=== PATIENT | female | born 1990 | race African-American/Black ===

== ENCOUNTER → 2017-06-04 | Outpatient (CLI) | payer MEDICAID, OTHER ==
[~2017-06-04] MED LIST: METR500T10 PO; MULTTAB20 PO; PNV11TAB PO; PRENTAB14 PO; PROM1SUP7 RECTAL; ZOFR4TAB3 SL
== END ==
LOC: HPND 08:15
PROVIDERS: ATTEND Family Medicine
DX: O36.80X0 Pregnancy with inconclusive fetal viability, not applicable or unspecified (principal); Z36 Encounter for antenatal screening of mother
CPT/HCPCS: 76801; 76817

== ENCOUNTER → 2017-08-13 | Outpatient (CLI) | payer MEDICAID ==
[~2017-08-13] MED LIST changes: -MULTTAB20 PO; -PRENTAB14 PO
== END ==
LOC: HPND 08:20
PROVIDERS: ATTEND Family Medicine
DX: Z36.9 Encounter for antenatal screening, unspecified (principal)
CPT/HCPCS: 76805

== ENCOUNTER → 2017-09-18 | Outpatient (CLI) | payer MEDICAID ==
[~2017-09-18] MED LIST changes: -METR500T10 PO
== END ==
LOC: HPND 08:24
PROVIDERS: ATTEND Family Medicine
DX: Z36.2 Encounter for other antenatal screening follow-up (principal)
CPT/HCPCS: 76816

== ENCOUNTER 2017-11-20 14:54 | Emergency (ER) | payer MEDICAID ==
[~2017-11-20 14:54] MED LIST changes: +BOOSINJ IM
--- NOTE | 2017-11-20 15:52 | PD ---
HPI Chief Complaint back pain Date Seen: Nov 20, 2017 Time Seen: 15:44 (Lupillo Mccullough MD) Travel History International Travel<30 Days: No Contact w/Intl Traveler<30Days: No (Lupillo Mccullough MD) History of Present Illness HPI 27 y/o at 33/0 weeks presents to ED for back pain. She is a pt of Dr. Mckeon and was told to come be evaluated if worsening back pain. She states the back pain has been going on the entire . States the back pain has worsened in the last few days. Pain is bilateral lower back. Worse with standing/sitting. Describes it as 7/10 when standing or walking. Denies any shooting pain down legs or numbness/tingling. Denies any vaginal bleeding, loss of fluids, contractions. Endorses movement. Denies any other complaints, including chest pain, SOB, abdominal pain, leg pain/swelling. Has been taking Tylenol frequently, which helps some. Weeks Gestation: 33 Para: 1 : 4 : 2 (Lupillo Mccullough MD) History Past Medical History Medical History: Denies Significant Hx (Lupillo Mccullough MD) Obstetric History Obstetric History 2011- at 37w 2012- 2014- (Lupillo Mccullough MD) Past Surgical History Narrative Surgical Appendectomy (Lupillo Mccullough MD) Family History Family History: Negative (Lupillo Mccullough MD) Social History Alcohol Use: No Tobacco Use: No Substance Abuse: No (Lupillo Mccullough MD) Allergies-Medications (Allergen,Severity, Reaction): Coded Allergies: No Known Allergies (Verified Adverse Reaction, Unknown, 10/26/17) Home Meds Active Scripts Diph-Tetanus Tox-Acell Pert Inj (Boostrix Inj) 5-2.5-18.5/0.5 Ml Inj, 0.5 ML IM .ONCE for Immunization, #1 SYRINGE 0 Refills Prov:Barry Mckeon MD R2 11/09/17 Aff971/FA/Omega3/Dha/Fish Oil ( Gummies) 400 Mcg-32.5 Mg (25 Mg-7.5 Mg) Tab.chew, 1 GUM PO DAILY, #90 BOTTLE 11 Refills Prov:Barry Mckeon MD R2 06/19/17 Promethazine Supp (Phenergan Supp) 25 Mg Supp, 25 MG RECTAL Q4H Y for NAUSEA OR VOMITING, #30 SUPP 0 Refills Prov:Barry Mckeon MD R2 06/17/17 Ondansetron Odt (Zofran Odt) 4 Mg Tab, 4 MG SL Q6HR Y for Nausea/Vomiting, #30 TAB 0 Refills Prov:Barry Mckeon MD R2 06/17/17 Review of Systems General / Constitutional: Weight Gain, No: Fever, Weight Loss, Chills, Other Eyes: No: Diploplia, Blurred Vision, Visual changes, Pain, Photophobia HENT: No: Headaches, Vertigo, Lightheadedness Cardiovascular: No: Irregular Rhythm, Chest Pain or Discomfort, Palpitations, Tachycardia, Syncope, Varicosities, Edema, Cyanosis Respiratory: No: Cough, Short of Breath, Other Gastrointestinal: No: Nausea, Vomiting, Diarrhea, Abdominal Pain, Constipation Genitourinary: No: Urgency, Frequency, Dysuria, Nocturia, Decreased Urinary Output, Oliguria, Incontinence, Pelvic Pain, Discharge, Menorrhagia, Vaginal Bleeding Musculoskeletal: No: Limited ROM, Weakness, Cramping, Edema, Pain Skin: No Rash, No Itching, No Dryness, No Lumps, No Change in Pigmentation, No Change in Nails, No Alopecia, No Lesions Neurologic: No: Weakness, Dizziness, Syncope, Focal Abnormalities, Coordination Problem, Headache, Slurred Speech, Seizures Psychiatric: No: Depression, Suicidal Ideations, Homicidal Ideation Endocrine: No: Heat Intolerance, Cold Intolerance, Polydipsia, Polyuria, Other (Lupillo Mccullough MD) Physical Exam Narrative GENERAL: Well-nourished, well-developed patient. SKIN: Warm and dry. HEAD: Normocephalic and atraumatic. EYES: No scleral icterus. No injection or drainage. ENT: No nasal drainage noted. Mucous membranes pink. Airway patent. NECK: Supple, trachea midline. No JVD. CARDIOVASCULAR: Regular rate and rhythm without murmurs, gallops, or rubs. RESPIRATORY: Breath sounds equal bilaterally. No accessory muscle use. ABDOMEN/GI: Abdomen soft, non-tender, bowel sounds present, no rebound, no guarding Gravid to 33 weeks size GENITOURINARY: deferred Uterine Contractions: none FHT's: Category: 1 Baseline: 150 Reactive: yes Variability: moderate Decels: none EXTREMITIES: No cyanosis or edema. BACK: Nontender without obvious deformity. No CVA tenderness. NEUROLOGICAL: Awake and alert. Motor and sensory grossly within normal limits. Five out of 5 muscle strength in all muscle groups. Normal speech. (Lupillo Mccullough MD) Data Data Vital Signs Reviewed: Yes (Lupillo Mccullough MD) [facility] Medical Record Reviewed: Yes Interpretation(s) 27 y/o at 33/0 weeks presents with back pain Category 1 FHT Urine dip shows mild dehydration, no sign of infection, trace protein A/P: Back pain affecting -Discharge home -F/u with Dr. Mckeon next Thursday -Recommended belly band to wear, especially while at work -Can use Tylenol, but not to exceed 3g daily -Return to ED if signs of vaginal bleeding, gush of fluids, severe/frequent contractions (Lupillo Mccullough MD) Attending Attestation Patient seen, examined, and discussed with Dr. Mccullough. I agree with assessment and management as documented and discussed with me. (Keri Sherman MD) Diagnosis Diagnosis: Primary Impression: Back pain affecting in third trimester Disposition: DISCHARGE HOME Condition: Stable Patient Instructions: General Instructions, Early Labor Signs (ED) Lupillo Mccullough MD Nov 20, 2017 15:52 Keri Sherman MD Nov 21, 2017 10:43
== END 2017-11-20 16:46 | disposition home or self-care (01) ==
LOC: HOBED 14:54
DX: O26.893 Other specified pregnancy related conditions, third trimester (principal); M54.5 Low back pain; Z3A.33 33 weeks gestation of pregnancy
CPT/HCPCS: 59025

== ENCOUNTER → 2017-12-28 | Outpatient (CLI) | payer MEDICAID | LOC: HPND 09:04 | PROVIDERS: ATTEND Family Medicine | DX: O26.843 Uterine size-date discrepancy, third trimester (principal); O36.5930 Maternal care for other known or suspected poor fetal growth, third trimester, not applicable or unspecified | CPT/HCPCS: 76816 ==

== ENCOUNTER 2017-12-29 18:08 | Emergency (ER) | payer MEDICAID ==
[2017-12-29 18:52] VITALS: BP 125/78; PULSE 105
--- NOTE | 2017-12-29 19:19 | PD ---
HPI Chief Complaint labor check Date Seen: Dec 29, 2017 Time Seen: 19:00 (Georgiana Glez MD R1) Travel History International Travel<30 Days: No Contact w/Intl Traveler<30Days: No (Georgiana Glez MD R1) History of Present Illness HPI Ms. Schroeder is a 27-year-old at 38/4 weeks gestation presenting to the ED for a labor check. She states that she saw her PCP, Dr. Mckeon, at the [facility] this afternoon. When he checked her cervix he stated that she was about 5 cm dilated and to come to the ED. She states that she went home first then came back to the hospital. She is not experiencing any contractions. No vaginal bleeding, no leakage of fluids, no dysuria, no chest pain, no shortness of breath, no calf pain, no headaches, no blurry vision. Weeks Gestation: 38 Para: 1 : 4 (Georgiana Glez MD R1) History Past Medical History Medical History: Denies Significant Hx (Georgiana Glez MD R1) Obstetric History Obstetric History Has a son who is 6, spontaneous vaginal delivery, term , no complications, small for gestational age Elective abortions in 2011 and 2013 by [facility] No history of any STDs (Georgiana Glez MD) Past Surgical History Narrative Surgical Appendectomy (Georgiana Glez MD) Family History Narrative Family History Mother and father both have hypertension and diabetes (Georgiana Glez MD) Social History Narrative Social History Lives with her son Works at [employer] Denies alcohol, tobacco, or illicit drug use Alcohol Use: No Tobacco Use: No Substance Abuse: No (Georgiana Glez MD R1) Allergies-Medications (Allergen,Severity, Reaction): Coded Allergies: No Known Allergies (Verified Adverse Reaction, Unknown, 10/26/17) Home Meds Active Scripts Diph-Tetanus Tox-Acell Pert Inj (Boostrix Inj) 5-2.5-18.5/0.5 Ml Inj, 0.5 ML IM .ONCE for Immunization, #1 SYRINGE 0 Refills Prov:Barry Mckeon MD R2 11/09/17 Jxb615/FA/Omega3/Dha/Fish Oil ( Gummies) 400 Mcg-32.5 Mg (25 Mg-7.5 Mg) Tab.chew, 1 GUM PO DAILY, #90 BOTTLE 11 Refills Prov:Barry Mckeon MD R2 06/19/17 Promethazine Supp (Phenergan Supp) 25 Mg Supp, 25 MG RECTAL Q4H Y for NAUSEA OR VOMITING, #30 SUPP 0 Refills Prov:Barry Mckeon MD R2 06/17/17 Ondansetron Odt (Zofran Odt) 4 Mg Tab, 4 MG SL Q6HR Y for Nausea/Vomiting, #30 TAB 0 Refills Prov:Barry Mckeon MD R2 06/17/17 Review of Systems General / Constitutional: No: Fever, Chills Eyes: No: Blurred Vision HENT: No: Headaches Cardiovascular: No: Chest Pain or Discomfort Respiratory: No: Short of Breath Gastrointestinal: No: Nausea, Vomiting, Abdominal Pain Genitourinary: No: Dysuria Musculoskeletal: No: Weakness Skin: No Rash (Georgiana Glez MD R1) Physical Exam Vital Signs Date Time Temp Pulse Resp B/P (MAP) Pulse Ox O2 Delivery O2 Flow Rate FiO2 12/29/17 18:52 105 125/78 (94) Narrative GENERAL: Well-nourished, well-developed patient. SKIN: Warm and dry. HEAD: Normocephalic and atraumatic. EYES: No scleral icterus. No injection or drainage. ENT: No nasal drainage noted. Mucous membranes pink. Airway patent. NECK: Supple, trachea midline. No JVD. CARDIOVASCULAR: Regular rate and rhythm without murmurs, gallops, or rubs. RESPIRATORY: Breath sounds equal bilaterally. No accessory muscle use. BREASTS: Bilateral exam showed no masses , no retractions, no nipple discharge. ABDOMEN/GI: Abdomen soft, non-tender, bowel sounds present, no rebound, no guarding Gravid to 38 weeks size GENITOURINARY: External Genitalia: intact and normal in appearance Cervix: posterior Dilatation: 4 Effacement: 70 Station: -2 Membranes: intact Uterine Contractions: none FHT's: Category: 1 Baseline: 130s Reactive: yes Variability: moderate Decels: none EXTREMITIES: No cyanosis or edema. BACK: Nontender without obvious deformity. No CVA tenderness. NEUROLOGICAL: Awake and alert. Motor and sensory grossly within normal limits. Five out of 5 muscle strength in all muscle groups. Normal speech. (Georgiana Glez MD R1) Data Data Vital Signs Reviewed: Yes Orders Orders Vital Signs (Adult) .ON ADMISSION (12/29/17 18:30) ^ Labor Status (12/29/17 18:30) ^ Non Stress Test (12/29/17 18:30) (Georgiana Glez MD R1) MDM Plan 27-year-old at 38/4 weeks gestation presenting for labor check Cervix is 4/70/-1, patient is not experiencing any contractions at this time FHT shows category 1 tracing -Advised patient to return to ED when contractions are about 3 minutes apart -Advised patient about the signs of labor -Encouraged patient to return if any further issues (Georgiana Glez MD R1) Attending Attestation I personally evaluated and examined patient and performed all park components of decision making. No evidence of active labor at this time. SVE 4/70/-2, posterior cervix. Exam esentially unchanged from exam in the office several hours ago. Discussed signs and symptoms of labor, strict labor precautions. Reassuring FHR, FKC daily. SMS (Flora Sanchez MD) Diagnosis Diagnosis: Primary Impression: 38 weeks gestation of Disposition: DISCHARGE HOME Condition: Stable Georgiana Glez MD R1 Dec 29, 2017 19:19 Flora Sanchez MD Dec 30, 2017 14:44
== END 2017-12-29 19:41 | disposition home or self-care (01) ==
LOC: HOBED 18:08
DX: O47.1 False labor at or after 37 completed weeks of gestation (principal); Z3A.38 38 weeks gestation of pregnancy
CPT/HCPCS: 59025

== ENCOUNTER 2018-01-11 22:27 | Inpatient (IN) | payer MEDICAID ==
[~2018-01-11] VITALS: Ht 170.2 cm; Wt 91.0 kg
--- NOTE | 2018-01-11 22:39 | PD ---
HPI Chief Complaint concern for ROM Date Seen: Jan 11, 2018 Travel History International Travel<30 Days: No Contact w/Intl Traveler<30Days: No History of Present Illness HPI Ms. Torres is a 27 yo at 40 3/7 weeks (ARSALAN 01/08/2018) who presents with concern for rupture of membranes. Patient reports that she was laying down and felt her water break ~20 minutes ago. Patient reports gush of clear fluid; she did notice any associated blood. Patient has had irregular abdominal cramping but no regular contractions. Normal movement. Patient does not report chest pain, shortness of breath, nausea/vomiting, abnormal bowel movements, or abnormal urination. records: O+, antibody negative. Trichomonas 05/2017, YOLANDA negative 08/2017. Otherwise no infectious diseases. GBS-. US 12/28/2017- Normal BPP. EFW 21st %ile. Cephalic presentation Weeks Gestation: 40 Para: 1 : 4 : 2 History Past Medical History Medical History: Denies Significant Hx Obstetric History Obstetric History 2010 Induction at ~37 weeks- IUGR? 2 abortions Past Surgical History Narrative Surgical LEEP 2016 Appendectomy Family History Family History: Negative Social History Alcohol Use: No Tobacco Use: No Substance Abuse: No Allergies-Medications (Allergen,Severity, Reaction): Coded Allergies: No Known Allergies (Verified Adverse Reaction, Unknown, 10/26/17) Home Meds Active Scripts Diph-Tetanus Tox-Acell Pert Inj (Boostrix Inj) 5-2.5-18.5/0.5 Ml Inj, 0.5 ML IM .ONCE for Immunization, #1 SYRINGE 0 Refills Prov:Barry Mckeon MD R2 11/09/17 Hka480/FA/Omega3/Dha/Fish Oil ( Gummies) 400 Mcg-32.5 Mg (25 Mg-7.5 Mg) Tab.chew, 1 GUM PO DAILY, #90 BOTTLE 11 Refills Prov:Barry Mckeon MD R2 06/19/17 Promethazine Supp (Phenergan Supp) 25 Mg Supp, 25 MG RECTAL Q4H Y for NAUSEA OR VOMITING, #30 SUPP 0 Refills Prov:Barry Mckeon MD R2 06/17/17 Ondansetron Odt (Zofran Odt) 4 Mg Tab, 4 MG SL Q6HR Y for Nausea/Vomiting, #30 TAB 0 Refills Prov:Barry Mckeon MD R2 06/17/17 Review of Systems General / Constitutional: No: Fever Eyes: No: Blurred Vision HENT: No: Headaches Cardiovascular: No: Chest Pain or Discomfort Respiratory: No: Short of Breath Gastrointestinal: No: Nausea, Vomiting Genitourinary: No: Urgency, Dysuria Musculoskeletal: No: Limited ROM Skin: No Rash, No Itching Neurologic: No: Weakness, Dizziness Psychiatric: No: Anxiety, Depression Physical Exam HR 96 RR 18 BP 134/85 Narrative GENERAL: Well-nourished, well-developed patient. SKIN: Warm and dry. HEAD: Normocephalic and atraumatic. EYES: No scleral icterus. No injection or drainage. ENT: No nasal drainage noted. Mucous membranes pink. Airway patent. NECK: No thyromegaly or lymphadenopathy CARDIOVASCULAR: Regular rate and rhythm without murmurs RESPIRATORY: CTAB; normal rate ABDOMEN/GI: Abdomen soft, non-tender, bowel sounds present, no rebound, no guarding Gravid EXTREMITIES: No cyanosis or edema. BACK: Nontender without obvious deformity. No CVA tenderness. NEUROLOGICAL: Awake and alert. Motor and sensory grossly within normal limits. Normal speech. GENITOURINARY: External Genitalia: intact and normal in appearance Cervix: Dilatation: 5 Effacement: 80% Station: -1 Presentation: Vertex Membranes: Ruptured- Amnisure Uterine Contractions: irregular FHT's: Category: 1 Baseline: 130 Reactive: Y Variability: Mod Decels: None MDM Medical Record Reviewed: Yes Narrative Course / MDM 27 yo at 40 3/7 weeks (ARSALAN 01/08/2018) who presents with concern for rupture of membranes. -Cat 1 rhythm -Amnisure positive -irregular contractions/irritability -GBS- -No concerns; normal maternal VS Plan: -Will plan to admit for labor -Will check CBC, UA, hold clot -Will plan for Epidural after labs -Will watch EFM and CTG; will determine whether pitocin augmentation needed Rudy Zarate MD, R3 Jan 11, 2018 22:39
[2018-01-11] MEDS ORDERED: LACTATED RINGER'S 1000 ML INJ 1,000 ML IV PRN (23:10)
[2018-01-11] MEDS ORDERED: LACTATED RINGER'S 1000 ML INJ 1,000 ML IV SCH (23:10)
[2018-01-11] MEDS ORDERED: SODIUM CHLORID 0.9% 500 ML INJ 500 ML IV PRN (23:15)
[2018-01-11] MEDS ORDERED: MINERAL OIL 10 ML VIAL TOPICAL PRN (23:15)
[2018-01-11] MEDS ORDERED: CITRIC ACID-SODIUM CITRATE LIQ 30 ML UDC PO SCH (23:15)
[2018-01-11] MEDS ORDERED: OXYTOCIN 30 UNITS-500ML PREMIX 500 ML IV ONE (23:15)
[2018-01-11] MEDS ORDERED: LIDOCAINE HCL 1% 50 ML VIAL INFIL PRN (23:15)
[2018-01-11] MEDS ORDERED: LIDOCAINE HCL 1% 50 ML VIAL I-DERMAL PRN (23:15)
[2018-01-11] MEDS ORDERED: ONDANSETRON HCL 4 MG/2 ML VIAL IV PUSH PRN (23:15)
[2018-01-11 23:25] VITALS: PULSE 96
[2018-01-11 23:30] VITALS: PULSE 103
[2018-01-11] MEDS ORDERED: SODIUM CHLOR 0.9% 1000 ML INJ 1,000 ML IV PRN (23:30)
--- NOTE | 2018-01-11 23:33 | HHI.HP ---
History & Physical H&P Patient Name: Rickey Torres Unit Number: [id number] Date of : 1990 Patient Status: Registered Emergency Room Attending Doctor: Flora Sanchez MD HPI HPI Chief Complaint concern for ROM Date Seen: Jan 11, 2018 History of Present Illness HPI Ms. Torres is a 27 yo at 40 3/7 weeks (ARSALAN 01/08/2018) who presents with concern for rupture of membranes. Patient reports that she was laying down and felt her water break ~20 minutes ago. Patient reports gush of clear fluid; she did notice any associated blood. Patient has had irregular abdominal cramping but no regular contractions. Normal movement. Patient does not report chest pain, shortness of breath, nausea/vomiting, abnormal bowel movements, or abnormal urination. records: O+, antibody negative. Trichomonas 05/2017, YOLANDA negative 08/2017. Otherwise no infectious diseases. GBS-. US 12/28/2017- Normal BPP. EFW 21st %ile. Cephalic presentation Weeks Gestation: 40 Para: 1 : 4 : 2 History (Limited) History Past Medical History Medical History: Denies Significant Hx Obstetric History Obstetric History 2010 Induction at ~37 weeks- IUGR? 2 abortions Past Surgical History Narrative Surgical LEEP 2016 Appendectomy Family History Family History: Negative Social History Alcohol Use: No Tobacco Use: No Substance Abuse: No Allergies-Medications Allergies-Medications (Allergen,Severity, Reaction): Coded Allergies: No Known Allergies (Verified Adverse Reaction, Unknown, 10/26/17) Home Meds Active Scripts Diph-Tetanus Tox-Acell Pert Inj (Boostrix Inj) 5-2.5-18.5/0.5 Ml Inj, 0.5 ML IM .ONCE for Immunization, #1 SYRINGE 0 Refills Prov:Barry Mckeon MD R2 11/09/17 Cgd151/FA/Omega3/Dha/Fish Oil ( Gummies) 400 Mcg-32.5 Mg (25 Mg-7.5 Mg) Tab.chew, 1 GUM PO DAILY, #90 BOTTLE 11 Refills Prov:Barry Mckeon MD R2 06/19/17 Promethazine Supp (Phenergan Supp) 25 Mg Supp, 25 MG RECTAL Q4H Y for NAUSEA OR VOMITING, #30 SUPP 0 Refills Prov:Barry Mckeon MD R2 06/17/17 Ondansetron Odt (Zofran Odt) 4 Mg Tab, 4 MG SL Q6HR Y for Nausea/Vomiting, #30 TAB 0 Refills Prov:Barry Mckeon MD R2 06/17/17 ROS Review of Systems General / Constitutional: No: Fever Eyes: No: Blurred Vision HENT: No: Headaches Cardiovascular: No: Chest Pain or Discomfort Respiratory: No: Short of Breath Gastrointestinal: No: Nausea, Vomiting Genitourinary: No: Urgency, Dysuria Musculoskeletal: No: Limited ROM Skin: No Rash, No Itching Neurologic: No: Weakness, Dizziness Psychiatric: No: Anxiety, Depression Physical Exam Physical Exam HR 96 RR 18 BP 134/85 Narrative GENERAL: Well-nourished, well-developed patient. SKIN: Warm and dry. HEAD: Normocephalic and atraumatic. EYES: No scleral icterus. No injection or drainage. ENT: No nasal drainage noted. Mucous membranes pink. Airway patent. NECK: No thyromegaly or lymphadenopathy CARDIOVASCULAR: Regular rate and rhythm without murmurs RESPIRATORY: CTAB; normal rate ABDOMEN/GI: Abdomen soft, non-tender, bowel sounds present, no rebound, no guarding Gravid EXTREMITIES: No cyanosis or edema. BACK: Nontender without obvious deformity. No CVA tenderness. NEUROLOGICAL: Awake and alert. Motor and sensory grossly within normal limits. Normal speech. GENITOURINARY: External Genitalia: intact and normal in appearance Cervix: Dilatation: 5 Effacement: 80% Station: -1 Presentation: Vertex Membranes: Ruptured- Amnisure Uterine Contractions: irregular FHT's: Category: 1 Baseline: 130 Reactive: Y Variability: Mod Decels: None Data Data [facility] MDM Medical Record Reviewed: Yes Narrative Course / MDM 27 yo at 40 3/7 weeks (ARSALAN 01/08/2018) who presents with concern for rupture of membranes. -Cat 1 rhythm -Amnisure positive -irregular contractions/irritability -GBS- -No concerns; normal maternal VS Plan: -Will plan to admit for labor -Will check CBC, UA, hold clot -Will plan for Epidural after labs -Will watch EFM and CTG; will determine whether pitocin augmentation needed Rudy Zarate MD, R3 Jan 11, 2018 23:33
[2018-01-11 23:55] VITALS: PULSE 115
[2018-01-12] VITALS (48 sets, daily range): BP systolic 89–142; BP diastolic 47–99; PULSE 76–131; RESP 18–20; TEMP 98.2–98.9; O2SAT 99
[2018-01-12 00:36] LABS: AUTOMATED NEUTROPHIL # 10.1 TH/MM3 (1.8-7.7); BASOPHIL # 0.1 TH/MM3 (0-0.2); BASOPHIL % 0.6 % (0.0-2.0); EOSINOPHIL # 0.1 TH/MM3 (0-0.4); HEMATOCRIT 37.8 % (35.0-46.0); HEMOGLOBIN 12.8 GM/DL (11.6-15.3); LYMPH % 16.5 % (9.0-44.0); LYMPHOCYTE # 2.3 TH/MM3 (1.0-4.8); MEAN CELL VOLUME 87.6 FL (80.0-100.0); MEAN CORPUSCULAR HEMOGLOBIN 29.7 PG (27.0-34.0); MEAN CORPUSCULAR HGB CONC 33.9 % (32.0-36.0); MEAN PLATELET VOLUME 11.6 FL (7.0-11.0); MONO % 8.8 % (0.0-8.0); MONOCYTE # 1.2 TH/MM3 (0-0.9); NEUT % 73.1 % (16.0-70.0); PLATELET COUNT 228 TH/MM3 (150-450); RED BLOOD COUNT 4.32 MIL/MM3 (4.00-5.30); RED CELL DISTRIBUTION WIDTH 14.2 % (11.6-17.2); WHITE BLOOD COUNT 13.9 TH/MM3 (4.0-11.0)
[2018-01-12 00:45] LABS: BILIRUBIN, URINE NEG (NEG); BLOOD, URINE NEG (NEG); GLUCOSE,URINE NEG (NEG); KETONE, URINE NEG (NEG); MUCUS URINE FEW /lpf (OCC); NITRITE,URINE NEG (NEG); PH, URINE 6.5 (5.0-8.5); SQUAMOUS EPITHELIAL CELL URINE 6 /hpf (0-5); URINE COLOR YELLOW (YELLW/STRAW); URINE LEUKOCYTE ESTERASE MOD (NEG)
[2018-01-12] MEDS ORDERED: fentaNYL 2MCG-BUPIV 0.125% INJ 100 ML ONE (01:02)
[2018-01-12] MEDS ORDERED: DO NOT ADMINISTER ANTICOAGULANTS PRN (02:00)
[2018-01-12] MEDS ORDERED: ePHEDrine/NS 25 MG/5 ML SYRINGE IV PUSH PRN (02:00)
[2018-01-12] MEDS ORDERED: NO SYSTEM NARCOTICS PRN (02:00)
[2018-01-12] MEDS ORDERED: fentaNYL 2MCG-BUPIV 0.125% 100 ML EPIDURAL SCH (02:00)
--- NOTE | 2018-01-12 05:34 | PD.OB.DELI ---
Weeks gestation: 40 Anesthesia: Epidural Episiotomy: None Vaginal Delivery: Normal Presentation: Occiput anterior Nuchal Cord: None Delayed cord clamping (45 sec): Yes : Male Delivery date: Jan 12, 2018 Delivery time: 04:45 One Minute : 9 Five Minute : 9 Weight: 3195 Placenta: Spontaneous delivery Laceration: No lacerations Additional Information Assisted by Rudy Cason MD, R3 Jan 12, 2018 05:34
[2018-01-12] MEDS ORDERED: OXYTOCIN 30 UNITS-500ML PREMIX 500 ML IV SCH (05:45)
[2018-01-12] MEDS ORDERED: BENZOCAINE 20% TOPICAL SPRAY 60 ML CAN TOPICAL PRN (05:45)
[2018-01-12] MEDS ORDERED: oxyCODONE/ACETAMINOPHEN 5 MG/325 MG TAB PO PRN ×2 (05:45)
[2018-01-12] MEDS ORDERED: WITCH HAZEL 50%/GLYCERIN 12.5% 40 PAD JAR TOPICAL PRN (05:45)
[2018-01-12] MEDS ORDERED: DOCUSATE SODIUM 50 MG/SENNA 8.6 MG TAB PO PRN (05:45)
[2018-01-12] MEDS ORDERED: SODIUM CHLORIDE 0.9% FLUSH 10 ML FLUSH IV FLUSH PRN (05:45)
[2018-01-12] MEDS ORDERED: ONDANSETRON ODT 4 MG TAB PO PRN (05:45)
[2018-01-12] MEDS ORDERED: ALUMINUM/MAGNESIUM/SIMETH 30 ML CUP PO PRN (05:45)
[2018-01-12] MEDS ORDERED: ZOLPIDEM TARTRATE 5 MG TAB PO PRN (05:45)
--- NOTE | 2018-01-12 06:45 | HHI.OB ---
Subjective Post Day: 0 Remarks Patient is a 27-year-old delivered at 40 weeks and 4 days. Patient is day 0 after . Patient's pain is well-controlled. Patient reports not yet eating and drinking but denies any nausea or vomiting. Patient reports some bleeding. Patient has not passed gas or bowel movements. Patient is not yet walking but denies lower extremity pain or shortness of breath. Patient reports desire for contraception and breast-feeding. Objective Vitals/I&O Vital Signs Date Time Temp Pulse Resp B/P (MAP) Pulse Ox O2 Delivery O2 Flow Rate FiO2 01/12/18 05:33 18 01/12/18 05:30 124/81 (95) 01/12/18 05:30 101 01/12/18 05:16 18 01/12/18 05:15 132/70 (90) 01/12/18 05:15 104 01/12/18 05:14 18 01/12/18 05:00 116 135/73 (93) 01/12/18 05:00 98.9 20 01/12/18 04:46 117 131/68 (89) 01/12/18 04:40 118 01/12/18 04:31 126/77 (93) 01/12/18 04:25 118 20 01/12/18 04:15 127/67 (87) 01/12/18 04:10 113 01/12/18 04:05 116 01/12/18 04:00 124/68 (86) 01/12/18 03:57 98.8 01/12/18 03:55 127 01/12/18 03:54 18 01/12/18 03:50 131 01/12/18 03:45 118/75 (89) 01/12/18 03:40 102 01/12/18 03:30 94/48 (63) 01/12/18 03:25 89 01/12/18 03:21 18 01/12/18 03:20 88 01/12/18 03:15 98/47 (64) 01/12/18 03:10 92 01/12/18 03:00 89/48 (62) 01/12/18 02:55 109 01/12/18 02:45 100/59 (73) 01/12/18 02:40 97 01/12/18 02:30 100/59 (73) 01/12/18 02:25 93 01/12/18 02:15 112/61 (78) 01/12/18 02:10 88 01/12/18 02:00 114/69 (84) 01/12/18 01:55 93 01/12/18 01:44 95 115/61 (79) 01/12/18 01:44 98.7 18 01/12/18 01:31 18 01/12/18 01:30 20 01/12/18 01:25 97 01/12/18 01:22 130/85 (100) 01/12/18 01:11 100 139/85 (103) 01/12/18 00:40 98 01/12/18 00:25 101 01/12/18 00:21 18 01/12/18 00:20 95 124/99 (107) 01/12/18 00:10 95 01/11/18 23:55 115 01/11/18 23:30 103 01/11/18 23:25 96 Objective Remarks GENERAL: Well-nourished, well-developed patient. CARDIOVASCULAR: Regular rate and rhythm without murmurs, gallops, or rubs. RESPIRATORY: Breath sounds equal bilaterally. No accessory muscle use. ABDOMEN/GI: Abdomen soft, non-tender. Fundus: Firm, non-tender at umbilicus. GENITOURINARY: Light to moderate bleeding. EXTREMITIES: No cyanosis or edema, non-tender, without signs of DVT. Medications and IVs Current Medications Medications (Trade) Dose Ordered Sig/Armando Route Start Time Stop Time Status Last Admin Miscellaneous Information No systemic narcotics to be given except... UNSCH PRN .XX 01/12/18 02:00 01/13/18 01:59 Miscellaneous Information DO NOT ADMINISTER ANY ANTICOAGUL... UNSCH PRN .XX 01/12/18 02:00 01/13/18 01:59 Fentanyl/ Bupivacaine HCl 100 ml @ 0 mls/hr TITRATE EPIDURAL 01/12/18 02:00 (ePHEDrine/NS 25 MG/5 ML SYR) 10 mg UNSCH PRN IV PUSH 01/12/18 02:00 01/13/18 01:59 (NS Flush) 2 ml BID IV FLUSH 01/12/18 09:00 (NS Flush) 2 ml UNSCH PRN IV FLUSH 01/12/18 05:45 Oxytocin 500 ml @ 100 mls/hr CONTINUOUS IV 01/12/18 05:45 01/12/18 10:44 (Tylenol) 650 mg Q4H PRN PO 01/12/18 05:45 (Motrin) 800 mg Q8H PRN PO 01/12/18 05:45 (Percocet 5-325 Mg) 1 tab Q4H PRN PO 01/12/18 05:45 (Percocet 5-325 Mg) 2 tab Q4H PRN PO 01/12/18 05:45 (Americaine 20% Top Spr) 1 spray Q4H PRN TOPICAL 01/12/18 05:45 (Tucks Pads) 1 applic QID PRN TOPICAL 01/12/18 05:45 (Katlin-Colace) 2 tab Q12H PRN PO 01/12/18 05:45 (Ambien) 5 mg HS PRN PO 01/12/18 05:45 (M-M-R Ii Inj) 0.5 ml ONCE ONCE SQ 01/12/18 16:00 01/12/18 16:01 (Boostrix Inj) 0.5 ml ONCE ONCE IM 01/12/18 16:00 01/12/18 16:01 (Mag-Al Plus Susp Liq) 15 ml Q8H PRN PO 01/12/18 05:45 (Zofran Odt) 4 mg Q6H PRN PO 01/12/18 05:45 Assessment/Plan Problem List: (1) (spontaneous vaginal delivery) ICD Codes: O80 - Encounter for full-term uncomplicated delivery Assessment and Plan Patient is a 27-year-old delivered at 40 weeks and 4 days. Patient is day 0 after .Patient was counseled to do 6 weeks of pelvic rest. Patient was counseled to follow up in 6 weeks. Patient requested follow-up and contraception. --AF VSS --Continue routine care --Motrin and Percocet when necessary for pain --Encourage OOB --Pelvic rest for 6 weeks will need follow-up appointment at that time. --Contraception: will discuss --Anticipate discharge in 1-2 days Barry Mckeon MD R2 Jan 12, 2018 06:45
[2018-01-12] MEDS: IBUPROFEN 800 MG TAB PO PRN ×2 (08:08→16:24)
[2018-01-12] MEDS ORDERED: SODIUM CHLORIDE 0.9% FLUSH 10 ML FLUSH IV FLUSH SCH (09:00)
--- NOTE | 2018-01-12 09:34 | HHI.PR ---
Subjective Remarks Attending delivery note The patient progressed to complete/complete/+1 and commenced spontaneous maternal expulsive efforts with reassuring heart tones throughout. The head delivered atraumatically followed by atraumatic and spontaneous delivery of the anterior shoulder and remainder of the . The was placed on the maternal abdomen and was vigorous at delivery. After a delay , the cord was doubly clamped and cut. The placenta was removed spontaneously. No lacerations were noted. EBL, Apgars, and estimated weight as per delivery note. Objective Vital Signs Date Time Temp Pulse Resp B/P (MAP) Pulse Ox O2 Delivery O2 Flow Rate FiO2 01/12/18 08:00 98.2 76 18 137/84 (101) 01/12/18 05:33 18 01/12/18 05:30 124/81 (95) 01/12/18 05:30 101 01/12/18 05:16 18 01/12/18 05:15 132/70 (90) 01/12/18 05:15 104 01/12/18 05:14 18 01/12/18 05:00 116 135/73 (93) 01/12/18 05:00 98.9 20 01/12/18 04:46 117 131/68 (89) 01/12/18 04:40 118 01/12/18 04:31 126/77 (93) 01/12/18 04:25 118 20 01/12/18 04:15 127/67 (87) 01/12/18 04:10 113 01/12/18 04:05 116 01/12/18 04:00 124/68 (86) 01/12/18 03:57 98.8 01/12/18 03:55 127 01/12/18 03:54 18 01/12/18 03:50 131 01/12/18 03:45 118/75 (89) 01/12/18 03:40 102 01/12/18 03:30 94/48 (63) 01/12/18 03:25 89 01/12/18 03:21 18 01/12/18 03:20 88 01/12/18 03:15 98/47 (64) 01/12/18 03:10 92 01/12/18 03:00 89/48 (62) 01/12/18 02:55 109 01/12/18 02:45 100/59 (73) 01/12/18 02:40 97 01/12/18 02:30 100/59 (73) 01/12/18 02:25 93 01/12/18 02:15 112/61 (78) 01/12/18 02:10 88 01/12/18 02:00 114/69 (84) 01/12/18 01:55 93 01/12/18 01:44 95 115/61 (79) 01/12/18 01:44 98.7 18 01/12/18 01:31 18 01/12/18 01:30 20 01/12/18 01:25 97 01/12/18 01:22 130/85 (100) 01/12/18 01:11 100 139/85 (103) 01/12/18 00:40 98 01/12/18 00:25 101 01/12/18 00:21 18 01/12/18 00:20 95 124/99 (107) 01/12/18 00:10 95 01/11/18 23:55 115 01/11/18 23:30 103 01/11/18 23:25 96 Result Diagram: 01/12/18 0012 Flora Sanchez MD Jan 12, 2018 09:34
[2018-01-12] MEDS: ACETAMINOPHEN 325 MG TAB PO PRN ×2 (12:59→18:18)
[2018-01-12] MEDS ORDERED: MEASLES, MUMPS, RUBELLA VACCINE 0.5 ML VIAL SQ ONE (16:00)
[2018-01-12] MEDS ORDERED: DIPHTH/TETANUS/ACEL PERTUSSIS (BOOSTER) 0.5 ML VIAL/PFS IM ONE (16:00)
--- NOTE | 2018-01-13 07:47 | HHI.OB ---
Subjective Post Day: 1 Remarks Patient is a 27-year-old delivered at 40 weeks and 4 days. Patient is day 1 after . Patient's pain is well-controlled. Patient reports eating and drinking without any nausea or vomiting. Patient reports minimal bleeding. Patient has not yet passed gas or bowel movements. Patient is walking without lower extremity pain or shortness of breath. Patient reports desire for contraception and breast-feeding. Objective Vitals/I&O Vital Signs Date Time Temp Pulse Resp B/P (MAP) Pulse Ox O2 Delivery O2 Flow Rate FiO2 01/12/18 20:00 98.2 83 18 142/84 (103) 99 01/12/18 08:00 98.2 76 18 137/84 (101) Objective Remarks GENERAL: Well-nourished, well-developed patient. CARDIOVASCULAR: Regular rate and rhythm without murmurs, gallops, or rubs. RESPIRATORY: Breath sounds equal bilaterally. No accessory muscle use. ABDOMEN/GI: Abdomen soft, non-tender. Fundus: Firm, non-tender at umbilicus. GENITOURINARY: Light to moderate bleeding. EXTREMITIES: No cyanosis or edema, non-tender, without signs of DVT. Medications and IVs Current Medications Medications (Trade) Dose Ordered Sig/Armando Route Start Time Stop Time Status Last Admin Fentanyl/ Bupivacaine HCl 100 ml @ 0 mls/hr TITRATE EPIDURAL 01/12/18 02:00 (NS Flush) 2 ml BID IV FLUSH 01/12/18 09:00 (NS Flush) 2 ml UNSCH PRN IV FLUSH 01/12/18 05:45 (Tylenol) 650 mg Q4H PRN PO 01/12/18 05:45 01/12/18 18:18 (Motrin) 800 mg Q8H PRN PO 01/12/18 05:45 01/12/18 16:24 (Percocet 5-325 Mg) 1 tab Q4H PRN PO 01/12/18 05:45 (Percocet 5-325 Mg) 2 tab Q4H PRN PO 01/12/18 05:45 (Americaine 20% Top Spr) 1 spray Q4H PRN TOPICAL 01/12/18 05:45 (Tucks Pads) 1 applic QID PRN TOPICAL 01/12/18 05:45 (Katlin-Colace) 2 tab Q12H PRN PO 01/12/18 05:45 (Ambien) 5 mg HS PRN PO 01/12/18 05:45 (Mag-Al Plus Susp Liq) 15 ml Q8H PRN PO 01/12/18 05:45 (Zofran Odt) 4 mg Q6H PRN PO 01/12/18 05:45 Assessment/Plan Problem List: (1) (spontaneous vaginal delivery) ICD Codes: O80 - Encounter for full-term uncomplicated delivery Assessment and Plan Patient is a 27-year-old delivered at 40 weeks and 4 days. Patient is day 1 after . Patient was counseled to do 6 weeks of pelvic rest. Patient was counseled to follow up in 6 weeks. Patient requested follow-up and contraception. --AF VSS --Continue routine care --Motrin and Percocet when necessary for pain --Encourage OOB --Pelvic rest for 6 weeks will need follow-up appointment at that time. --Contraception: IUD after 6 week appointment --Anticipate discharge today Barry Mckeon MD R2 Jan 13, 2018 07:47
[2018-01-13 08:00] VITALS: BP 119/87; PULSE 84; RESP 20; TEMP 97.8; O2SAT 99
[2018-01-13] MEDS: IBUPROFEN 800 MG TAB PO PRN (08:53)
[2018-01-13] MEDS: ACETAMINOPHEN 325 MG TAB PO PRN (08:53)
[2018-01-13] MEDS ORDERED: IBUP1TAB7 PO (12:20)
--- NOTE | 2018-01-13 12:20 | HHI.DCPOC ---
Discharge Care Plan Diagnosis: (1) (spontaneous vaginal delivery) Report Symptoms to Your Doctor -Temperature above 100.5 degrees -Redness, of incision or excessive or foul smelling drainage -Unusual pain or calf pain -Increased vaginal bleeding -Painful or difficulty urinating -Feelings of extreme sadness or anxiety after 2 weeks Goals to Promote Your Health * To prevent worsening of your condition and complications * To maintain your health at the optimal level Directions to Meet Your Goals Take your medications as prescribed Follow your dietary instruction Follow activity as directed Ensure plenty of rest for recovery Drink fluids for hydration Keep your appointments as scheduled Take your immunizations and boosters as scheduled If your symptoms worsen call your PCP, if no PCP go to Urgent Care Center or Emergency Room Smoking is Dangerous to Your Health. Avoid second hand smoke Call the 24-hour crisis hotline for domestic abuse at Denisse Felipe MD Jan 13, 2018 12:20
[2018-01-13] MEDS ORDERED: BREAST PUMP1 MI1 (15:21)
== END 2018-01-13 17:15 | disposition home or self-care (01) | DRG 775 ==
LOC: HOBED 22:27 → H2EA 23:14 → H1EA 01-12 07:39
PROVIDERS: ADMIT Obstetrics & Gynecology; ATTEND Obstetrics & Gynecology
PROC: 10E0XZZ Delivery of Products of Conception, External Approach (ICD-10-PCS; principal; 2018-01-12)
PROC: 3E0R3BZ Introduction of Anesthetic Agent into Spinal Canal, Percutaneous Approach (ICD-10-PCS; 2018-01-12)
PROC: 00HU33Z Insertion of Infusion Device into Spinal Canal, Percutaneous Approach (ICD-10-PCS; 2018-01-12)
DX: O42.02 Full-term premature rupture of membranes, onset of labor within 24 hours of rupture (principal); Z37.0 Single live birth; Z3A.40 40 weeks gestation of pregnancy
CPT/HCPCS: 59025; 80307; 81001; 85025; 86900; 86901; 90715; G0481; J7120